=== PATIENT | female | born 1985 | race Caucasian/White ===

== ENCOUNTER 2017-11-15 10:30 | Inpatient (IN) | payer OTHER ==
[~2017-11-15] VITALS: Ht 165.1 cm; Wt 62.6 kg
[2017-11-15] MEDS ORDERED: FUSION PLUS CA1 EACH PO (12:08)
== END 2017-11-27 10:51 | disposition home or self-care (01) | DRG 743 ==
LOC: OB/GYN 11-24 07:18 → O/R 11-24 07:18 → OB/GYN 11-24 09:00
PROVIDERS: Obstetrics & Gynecology
PROC: 0UT70ZZ Resection of Bilateral Fallopian Tubes, Open Approach (ICD-10-PCS; 2017-11-24)
PROC: 0UT90ZZ Resection of Uterus, Open Approach (ICD-10-PCS; principal; 2017-11-24 09:00)
DX: D25.1 Intramural leiomyoma of uterus (principal); N93.8 Other specified abnormal uterine and vaginal bleeding